=== PATIENT | female | born 1985 | race Caucasian/White ===

== ENCOUNTER 2018-03-09 05:55 | Inpatient (IN) ==
[2018-03-09] MEDS ORDERED: Ringers Solution, Lactated 1,000 ML ONE ×2 (06:23→09:34)
[2018-03-09] MEDS ORDERED: Ringers Solution, Lactated 1,000 ML IVC ONE (06:33)
[2018-03-09] MEDS ORDERED: Famotidine 20 MG/2 ML VIAL IVP ONE (06:33)
[2018-03-09] MEDS ORDERED: Oxytocin 20 units/ LR 1000 mL 20 UNIT/1,000 ML BAG IVC ONE (06:33)
[2018-03-09] MEDS ORDERED: CeFAZolin Premix DUPLEX 2,000 MG/50 ML BAG IVPB ONE (06:33)
[2018-03-09] MEDS ORDERED: Metoclopramide 10 MG/2 ML VIAL IVP ONE (06:33)
[2018-03-09] MEDS ORDERED: Ringers Solution, Lactated 1,000 ML IVC SCH (06:45)
[2018-03-09] MEDS ORDERED: Oxytocin 20 units/ LR 1000 mL 20 UNIT/1,000 ML BAG IVC SCH ×2 (06:45→12:38)
[2018-03-09 07:13] LABS: Basophils % 0.3 %; Eosinophils % 0.4 %; Hematocrit 37.4 % (35.3-44.9); Hemoglobin 12.7 g/dL (11.5-15.4); Immature Granulocytes % 0.4 % (0-4); Lymphocytes # 1.1 K/mcL (0.6-4.6); Lymphocytes % 14.9 %; Mean Corpuscular Hemoglobin 31.1 pg (28.0-33.3); Mean Corpuscular Volume 91.7 fL (83.0-100.0); Mean Platelet Volume 13.2 fL (9.4-12.4); Monocytes # 0.5 K/mcL (0.0-1.3); Monocytes % 7.1 %; Neutrophils # 5.8 K/mcL (1.6-8.9); Platelet Count 137 K/mcL (140-400); Red Blood Count 4.08 M/mcL (3.82-4.97); Red Cell Distribution Width 15.4 % (11.5-14.5); Segmented Neutrophils % 76.9 %
[2018-03-09 07:22] LABS: Amphetamine Screen,Urine Negative ng/mL (Cutoff=1000); Barbiturate Screen,Urine Negative ng/mL (Cutoff=200); Benzodiazepines Screen,Urine Negative ng/mL (Cutoff=200); Cannabinoid Screen,Urine Negative ng/mL (Cutoff = 50); Cocaine Screen,Urine Negative ng/mL (Cutoff= 300); Opiate Screen,Urine Negative ng/mL (Cutoff=300); Phencyclidine Screen,Urine Negative ng/mL (Cutoff=25)
[2018-03-09] MEDS ORDERED: Ondansetron 4 MG/2 ML VIAL IVP PRN ×2 (07:38→12:38)
--- NOTE | 2018-03-09 07:41 | OB/GYN History & Physical ---
Date of Encounter: 03/09/18 Time of Encounter: 07:39 Assessment and Plan (1) Previous section Current visit: Yes Status: Chronic (2) 39 weeks gestation of Current visit: Yes Status: Chronic History of Present Illness HPI: Ms. Perez is a 32 year old female Patient is a 32-year-old 5 para 2 AB 2 white female who presents for repeat section. She has been followed in the office without any problems. She reports active fetus. Denies contractions, rupture membranes, vaginal bleeding. Past Med Surg Social Fam HX - Past Medical History Source: patient Medical history: no medical history Psychiatric history: no psych history - Past Surgical History Surgical History: Additional surgical history: club foot, Breast implants - Social History Smoking Status: Never smoker Smokeless Tobacco Status: No Alcohol use: none Drug use: none - Family History Mother Living Status: Still Living Hx Family Cardiac Disorders: No Hx Family Respiratory Disorders: No Hx Family Cancer: No Hx Family GI Disorders: No Hx Family Genitourinary Disorders: No Hx Family Endocrine Disorder: No Hx Family Musculoskeletal Disorders: No Hx Family Neuromuscular Disorders: No Hx Family Neurologic Disorders: No Hx Family HEENT Disorders: No Hx Family Autoimmune Disorders: No Hx Family Reproductive Disorders: No Hx Family Psychosocial Disorders: No Hx Family Medical Disorders: No Obstetrical History - Pregnancies : 5 Para: 2 Ab's: 2 Medications and Allergies Formula Tablet 1 tab PO DAILY 03/09/18 [History] 3 Allergy/AdvReac Type Severity Reaction Status Date / Time No Known Allergies Allergy Verified 05/20/16 17:00 Review of System OB All systems PM: reviewed and no additional remarkable complaints except as stated - Genitourinary Genitourinary: amenorrhea - Menstruation Menstruation: amenorrhea Exam - Vital Signs Vital signs: Initial Vital Signs Pulse Resp BP 87 16 139/74 03/09/18 06:11 03/09/18 06:11 03/09/18 06:11 - Constitutional Constitutional: well developed, well nourished, no acute distress, average body habitus - HEENT HEENT: Normocephaly - Neck Neck exam: full ROM - Lungs Respiratory exam: CTAB - Cardiovascular Cardiovascular exam: RRR - Abdomen Abdomen: Present: gravid, non tender - Extremities Extremities exam: full ROM - Uterus Uterus exam: Present: enlarged Results Result Diagrams: 03/09/18 06:33 Abnormal lab results RDW 15.4 % (11.5-14.5) H 03/09/18 06:33 Plt Count 137 K/mcL (140-400) L 03/09/18 06:33 MPV 13.2 fL (9.4-12.4) H 03/09/18 06:33 All other labs normal. - Attending Attestation Risk and benefits of repeat low transverse section was discussed. Curt Foster M.D., FACOG
[2018-03-09] MEDS ORDERED: Ondansetron 4 MG/2 ML VIAL ONE (07:42)
--- NOTE | 2018-03-09 08:10 | Anesthesia Evaluation PreOp ---
Date of Encounter: 03/09/18 Time of Encounter: 08:08 - Past History Planned Operation: Repeat C-S Cardiac History: Denies any Significant Hx Pulmonary History: Denies Any Significant HX PRESSURIZATION MECHANIC History: Denies Any Significant HX Other Medical History: Denies Any Significant HX Anesthesia History: No Prior Anesthetic Complications Alcohol Use: none Drug use: none Medications and Allergies Formula Tablet 1 tab PO DAILY 03/09/18 [History] 3 Allergy/AdvReac Type Severity Reaction Status Date / Time No Known Allergies Allergy Verified 05/20/16 17:00 - Meds/Allergy Pre-op Review Medications Reviewed: Yes Allergies Reviewed: Yes Beta Blockers on Current Med List: No Anesthesia Results - Labs 03/09/18 06:33 Anesthesia Exam Last Vital Signs Pulse 87 03/09/18 06:11 Resp 16 03/09/18 06:11 BP 139/74 03/09/18 06:11 Weight: 73 kg NPO (# of Hours): > 8 hrs - HEENT Pupil (Motor): Pupils equal, EOMI Mallampati: II Teeth: Normal Oral Opening: Greater than 3 - PRESSURIZATION MECHANIC LOC: Oriented PRESSURIZATION MECHANIC Motor: Normal RUE, Normal LUE, Normal RLE, Normal LLE, Normal Face - Cardiac Rhythm: Regular Murmur: None - Pulmonary Breath Sounds: bilateral Clear Respiratory Effort: Symmetrical Anesthesia Assess/Plan ASA Score: 2 Modified Lev Scale for Level of Consciousness: Cooperative, oriented, and tranquil Anesthetic Plan: General (plan B), Regional Monitoring Plan: Standard Monitors Recovery Plan: PACU
[2018-03-09] MEDS ORDERED: *HR* Oxytocin 10 UNIT/ML VIAL IM ONE (08:31)
[2018-03-09] MEDS ORDERED: *HR* FentaNYL (PF) 100 MCG/2 ML VIAL ONE (08:32)
[2018-03-09] MEDS ORDERED: Morphine Sulfate/PF 5mg/10mL Vial ONE (08:32)
[2018-03-09] MEDS ORDERED: Water for inj. (sterile) 10 ML IV ONE (08:32)
[2018-03-09] MEDS ORDERED: EPHEDrine 50 MG/ML VIAL ONE (08:32)
[2018-03-09] MEDS ORDERED: Lidocaine -MPF 2% 5 ML VIAL ONE (08:36)
[2018-03-09] MEDS ORDERED: Bupivacaine/PF 0.75% in Dex 2 ML AMPUL INFILT ONE ×2 (09:13→09:20)
[2018-03-09] MEDS ORDERED: *HR* Morphine 2 MG/ML SYRINGE IVP PRN (10:02)
[2018-03-09] MEDS ORDERED: *HR* HYDROmorphone (PF) 1 MG/ML SYRINGE IVP PRN (10:02)
[2018-03-09] MEDS ORDERED: Ondansetron 4 MG/2 ML VIAL IVP ONE (10:02)
[2018-03-09] MEDS ORDERED: Acetaminophen IV 1,000 MG/100 ML INFUS..BTL IVPB ONE (10:02)
[2018-03-09] MEDS ORDERED: *HR* Promethazine 25 MG/ML VIAL IVP PRN (10:02)
--- NOTE | 2018-03-09 10:30 | OB/GYN Procedure Note ---
Section - Date of procedure: 03/09/18 Preop diagnosis: desires repeat Post-op diagnosis: same Procedure: repeat low transverse Surgeon: Curt Kendrick Blood Loss: 500 Was there an permit review assistant present: No Anesthesiologist: Rebecca Maddox Anesthesia Type: Spinal section complications: none Disposition: PACU Specimens: Placenta - Infant (s) A Infant Delivery Date: 03/09/18 Delivery Time: 09:52 Presentation: vertex Position: BENJY Gender: Male Viability: Viable Pounds: 8 Ounces: 2 at 1 minute: 9 at 5 minutes: 9 Placenta: complete extraction Cord: nuchal reduced - Narrative Narrative: Patient was taken to the operating room. She was placed in supine position Hollingsworth catheter inserted and prepped and draped in usual manner. After appropriate timeout was obtained, the abdomen was entered through standard [place]lard incision. The Estrella retractor was placed. Peritoneum overlying the lower uterine segment was incised in U-shaped fashion. Uterine cavity was entered sharply and extended laterally. Fluid was clear. With fundal pressure the head was delivered. Infant suctioned upon delivery of the head. The remainder the infant was delivered. The umbilical cord doubly clamped and cut and the was handed to nursery staff further evaluation. Placenta was removed. Uterus was brought from within the abdominal cavity and wiped clean. The uterus was closed in single layer using 0 Monocryl. After assurance hemostasis, uterus was placed back within the abdominal cavity. The retractor was removed. The fascia was closed with 0 Stratta suture. The skin was reapproximated with a 3-0 Monocryl. Sterile dressing was applied. Patient did well was taken to recovery in satisfactory condition. Counts were correct.
[2018-03-09] MEDS ORDERED: Sennosides 8.6 MG TABLET PO PRN (12:38)
[2018-03-09] MEDS ORDERED: Metoclopramide 10 MG/2 ML VIAL IVP PRN (12:38)
[2018-03-09] MEDS ORDERED: Acetaminophen 325 MG TABLET PO PRN (12:38)
--- NOTE | 2018-03-09 12:57 | Anesthesia Evaluation Post Op ---
Date of Encounter: 03/09/18 Time of Encounter: 12:45 - Vital Signs Vital Signs: VSS - Lungs Lungs: Clear Ascult./Percussion - Airway Airway: Non-obstructed - Cardiovascular Regular Rate - Mental Status Mental Status: Alert & Oriented, Answers Appropriately - Pain Pain Scale: 2 Pain Scale used: Numeric (1 - 10) - Nausea Vomiting Nausea Vomiting: Not Present - Hydration Hydration: Hollingsworth catheter - Discharge PostOp Status: Transfer Patient to floor
[2018-03-09] MEDS: *HR* OxyCODONE/APAP 5/325 TABLET PO PRN ×2 (14:57→20:38)
[2018-03-09] MEDS ORDERED: *HR* Nalbuphine 10 MG/ML AMPUL IV ONE (19:26)
[2018-03-10] MEDS ORDERED: Lanolin 7 G OINT...G. TP PRN (00:37)
[2018-03-10] MEDS: *HR* OxyCODONE/APAP 5/325 TABLET PO PRN ×4 (03:30→19:36)
[2018-03-10 05:03] LABS: Basophils % 0.1 %; Eosinophils % 0.3 %; Hematocrit 33.4 % (35.3-44.9); Immature Granulocytes % 0.3 % (0-4); Lymphocytes # 0.8 K/mcL (0.6-4.6); Lymphocytes % 8.4 %; Mean Corpuscular HGB Conc 32.3 g/dL (31.6-35.5); Mean Corpuscular Hemoglobin 29.3 pg (28.0-33.3); Mean Corpuscular Volume 90.8 fL (83.0-100.0); Mean Platelet Volume 12.7 fL (9.4-12.4); Monocytes # 0.5 K/mcL (0.0-1.3); Monocytes % 5.5 %; Neutrophils # 7.7 K/mcL (1.6-8.9); Platelet Count 118 K/mcL (140-400); Red Blood Count 3.68 M/mcL (3.82-4.97); Red Cell Distribution Width 15.7 % (11.5-14.5); Segmented Neutrophils % 85.4 %
[2018-03-10] MEDS: Simethicone 80 MG TAB.CHEW PO PRN ×2 (05:08→08:40)
[2018-03-10 05:12] LABS: Hemoglobin 10.8 g/dL (11.5-15.4)
[2018-03-10] MEDS: Prenatal Vit/FA 1 EACH TABLET PO SCH (08:34)
[2018-03-10] MEDS: Ibuprofen 600 MG TABLET PO PRN ×2 (08:34→17:18)
--- NOTE | 2018-03-10 08:58 | OB/GYN Progress Note ---
Date of Encounter: 03/10/18 Time of Encounter: 08:57 - Assessment and Plan (1) Status post repeat low transverse section Current Visit: Yes Status: Acute Continue routine care Use abdominal binder liberally Anticipate discharge to home tomorrow (2) Breast feeding status of mother Current Visit: Yes Status: Acute consult as needed (3) anemia Current Visit: Yes Status: Acute Continue iron supplementation daily Subjective - Subjective Principal diagnosis: s/p RLTCS Interval history: Feeling well. Out of bed without dizziness. Abdominal discomfort-using abdominal binder. Cramping intense, using Percocet and ibuprofen. Breast- feeding every 2-3 hours. Some nipple soreness. Voiding without difficulty. Passing flatus, no BM yet. Tolerating regular diet. Patient reports: appetite normal, pain poorly controlled [place]: doing well, nursing well Objective - Vital Signs Latest vital signs: Vital Signs Temp Pulse Resp BP Pulse Ox 03/10/18 04:30 98.2 F 88 16 132/85 96 03/10/18 00:28 97.9 F 84 16 123/81 98 03/09/18 21:01 98.6 F 88 16 129/81 96 03/09/18 15:45 98.3 F 82 16 104/67 03/09/18 14:45 98.1 F 93 16 104/71 03/09/18 13:45 98.1 F 89 16 123/80 03/09/18 13:15 98.1 F 89 16 123/79 03/09/18 12:45 98.3 F 79 16 118/76 99 Intake and Output 03/09/18 03/10/18 03/10/18 23:59 07:59 15:59 Intake Total 500 / 500 Output Total 150 / 150 2100 / 2100 Balance 350 / 350 -2100 / -2100 Intake: Oral 500 / 500 Output: Urine 2099 / 2100 Catheter 150 / 150 Other: Meal Dinner Percent of Meal Consumed 75% Weight 70.307 kg Patient Weight 03/10/18 23:59 Weight 70.307 kg - Exam Lungs: bilateral: normal Chest: Normal S1, Normal S2 Extremities: Present: normal Abdomen: Present: normal appearance, soft, gravid Incision: Present: normal, dry, dressed Uterus: Present: normal, firm Fundal Height: 0 (midline) Comments: Breasts: Nipples intact without erythema; breasts soft, nontender. - Labs Labs: Laboratory Results - last 24 hr 03/10/18 04:00 WBC 9.0 RBC 3.68 L Hgb 10.8 L D Hct 33.4 L MCV 90.8 MCH 29.3 MCHC 32.3 RDW 15.7 H Plt Count 118 L MPV 12.7 H Immature Gran % 0.3 Seg Neutrophils % 85.4 Lymphocytes % 8.4 Monocytes % 5.5 Eosinophils % 0.3 Basophils % 0.1 Neutrophils # 7.7 Lymphocytes # 0.8 Monocytes # 0.5 Eosinophils # 0.0 Basophils # 0.0
[2018-03-10] MEDS ORDERED: NON-FORMULARY MEDICATION 1 EACH EACH (Prenatal Formula Tablet 1 TAB) PO SCH (09:00)
[2018-03-11] MEDS: *HR* OxyCODONE/APAP 5/325 TABLET PO PRN (01:43)
[2018-03-11] MEDS: Ibuprofen 600 MG TABLET PO PRN (07:04)
[2018-03-11 08:14] VITALS: BP 126/76
[2018-03-11] MEDS: Prenatal Vit/FA 1 EACH TABLET PO SCH (09:09)
--- NOTE | 2018-03-11 11:22 | Discharge Summary ---
Date of Encounter: 03/11/18 Time of Encounter: 11:19 - Discharge Diagnosis (1) Breast feeding status of mother Priority: Secondary Status: Acute (2) Status post repeat low transverse section Priority: Primary Status: Acute Comments: Stable in PP, meeting all milestones, Pain well managed on po pain medication, , desires discharge, - Discharge Medications Prescriptions: OxyCODONE/APAP 5/325 [Percocet 5/325 MG] 1 each PO Q4HR PRN 5 Days #20 tablet PRN Reason: Moderate pain 4-6 Ibuprofen [Motrin] 600 mg PO Q6HR PRN #60 tablet PRN Reason: Cramping Docusate [Colace] 100 mg PO BID #60 capsule Home Medications: Formula Tablet 1 tab PO DAILY 03/09/18 [History] Acetaminophen [Tylenol] 325 mg PO Q6HR PRN tablet 03/11/18 [Rx] Docusate [Colace] 100 mg PO BID #60 capsule 03/11/18 [Rx] Ibuprofen [Motrin] 600 mg PO Q6HR PRN #60 tablet 03/11/18 [Rx] Lanolin [Lansinoh] 1 appl TP Q4HR PRN oint...g. 03/11/18 [Rx] OxyCODONE/APAP 5/325 [Percocet 5/325 MG] 1 each PO Q4HR PRN 5 Days #20 tablet [Rx] Vit/FA 1 each PO DAILY tablet 03/11/18 [Rx] Simethicone [Gas-X] 80 mg PO TID PRN tab.chew 03/11/18 [Rx] Allergies/Adverse Reactions: 3 Allergy/AdvReac Type Severity Reaction Status Date / Time No Known Allergies Allergy Verified 05/20/16 17:00 Data Procedures and tests throughout hospitalization: Laboratory Tests 03/09/18 03/09/18 03/09/18 06:24 06:33 06:33 WBC 7.5 RBC 4.08 Hgb 12.7 Hct 37.4 MCV 91.7 MCH 31.1 MCHC 34.0 RDW 15.4 H Plt Count 137 L MPV 13.2 H Immature Gran % 0.4 Seg Neutrophils % 76.9 Lymphocytes % 14.9 Monocytes % 7.1 Eosinophils % 0.4 Basophils % 0.3 Neutrophils # 5.8 Lymphocytes # 1.1 Monocytes # 0.5 Eosinophils # 0.0 Basophils # 0.0 Urine Opiates Screen Negative Ur Barbiturates Screen Negative Ur Phencyclidine Scrn Negative Ur Amphetamines Screen Negative U Benzodiazepines Scrn Negative Urine Cocaine Screen Negative U Marijuana (THC) Screen Negative Blood Type O POSITIVE Antibody Screen NEGATIVE 03/10/18 04:00 WBC 9.0 RBC 3.68 L Hgb 10.8 L D Hct 33.4 L MCV 90.8 MCH 29.3 MCHC 32.3 RDW 15.7 H Plt Count 118 L MPV 12.7 H Immature Gran % 0.3 Seg Neutrophils % 85.4 Lymphocytes % 8.4 Monocytes % 5.5 Eosinophils % 0.3 Basophils % 0.1 Neutrophils # 7.7 Lymphocytes # 0.8 Monocytes # 0.5 Eosinophils # 0.0 Basophils # 0.0 Urine Opiates Screen Ur Barbiturates Screen Ur Phencyclidine Scrn Ur Amphetamines Screen U Benzodiazepines Scrn Urine Cocaine Screen U Marijuana (THC) Screen Blood Type Antibody Screen Date of admission: 03/09/18 05:55 Primary care physician: PCP NONE Discharging clinician: Isadora Portillo Anticipated date of discharge: 03/11/18 - Patient Status Disposition: Home, Self-Care Condition: Good Overall status at discharge: patient is back to baseline - Discharge Instructions Follow Up With: NONE,PCP [Primary Care Provider] - Curt Foster MD [Partnered Physician] - - Diet and Activity Activity: resume usual activities as tolerated Diet: regular diet Hospital Course Reason for admission: section Delivery: section Episiotomy: none Laceration: none Other procedures: none complications: none Discharge diagnosis: IUP at term delivered [place] baby: male Hospital course: ate: 03/09/18 10:27 Initialization Date: 03/09/18 10:27 Section - Date of procedure: 03/09/18 Preop diagnosis: desires repeat Post-op diagnosis: same Procedure: repeat low transverse Surgeon: Curt Foster Quantitated Blood Loss: 500 Was there an assistant produce manager present: No Anesthesiologist: Rebecca Maddox Anesthesia Type: Spinal section complications: none Disposition: PACU Specimens: Placenta - Infant (s) A Infant Delivery Date: 03/09/18 Infant Delivery Time: 09:52 Presentation: vertex Position: BENJY Gender: Male Viability: Viable Pounds: 8 Ounces: 2 at 1 minute: 9 at 5 minutes: 9 Placenta: complete extraction Cord: nuchal reduced Time Attestation: Total time spent providing and/or coordinating discharge services: Time Spent: Less than 30 minutes - VTE Documentation of Mechanical Device: Intermittent pneumatic compression device Exam - Constitutional Vitals: Temp Pulse Resp BP Pulse Ox 98.2 F 68 12 126/76 97 03/11/18 07:30 03/11/18 07:30 03/11/18 07:30 03/11/18 07:30 03/11/18 07:30 General appearance IM: A&O X 3 - Respiratory Respiratory exam: Present: CTAB - Cardiovascular Cardiovascular exam IM: Present: RRR - GI/Abdominal GI/Abdominal exam IM: soft Incision: dressed (LUIZA) - Uterine Tone: Firm Uterus Position: At Umbilicus - Extremities Exam Extremities exam IM: Present: normal capillary refill, normal inspection - Neurological Exam Neurological exam: normal gait, oriented X3 - Psychiatric Additional comments: reports good mood
== END 2018-03-11 13:00 | disposition home or self-care (01) | DRG 766 ==
LOC: 1NENULAB 05:55 → 1NENUOBS 11:42
PROVIDERS: ADMIT Obstetrics & Gynecology; ATTEND Obstetrics & Gynecology